=== PATIENT | male | born 1960 | race Hispanic/Latino ===

== ENCOUNTER 2020-01-04 14:51 | Emergency (ER) | payer MEDICARE ==
[2020-01-04] MEDS ORDERED: ACETAMINOPHEN EXTRA STRENGTH 500 MG TABLET ONE (15:17)
== END 2020-01-04 15:43 | disposition home or self-care (01) ==
LOC: EDH 14:51 → EEVIPCON 14:51 → EDH 15:43
DX: R51 Headache (principal); Z72.0 Tobacco use

== ENCOUNTER 2020-01-09 09:16 | Emergency (ER) | payer MEDICARE | END 2020-01-09 10:04 | disposition home or self-care (01) | LOC: EDH 09:16 | DX: Z53.21 Procedure and treatment not carried out due to patient leaving prior to being seen by health care provider (principal); Z87.891 Personal history of nicotine dependence ==

== ENCOUNTER 2020-01-16 23:13 | Emergency (ER) | payer MEDICARE | END 2020-01-17 00:15 | LOC: EDH 23:13 → EEVIPCON 23:13 → EDH 01-17 00:15 | DX: G89.29 Other chronic pain (principal); M79.671 Pain in right foot; Z72.0 Tobacco use ==